=== PATIENT | male | born 1945 | race Caucasian/White ===

== ENCOUNTER 2022-02-15 17:36 | Emergency (ER) | payer MEDICARE, OTHER ==
[2022-02-15] MEDS ORDERED: Sodium Chloride 0.9% 1,000 ML IV SCH ×2 (18:15→19:30)
[2022-02-15 18:57] LABS: ESTIMATED GFR 79 mL/min (>60)
== END 2022-02-15 21:14 | disposition home or self-care (01) ==
LOC: JP.ED 17:36
DX: K62.5 Hemorrhage of anus and rectum (principal); E78.00 Pure hypercholesterolemia, unspecified; I10 Essential (primary) hypertension; Z95.5 Presence of coronary angioplasty implant and graft; Z79.82 Long term (current) use of aspirin; Z79.899 Other long term (current) drug therapy
CPT/HCPCS: 36415; 80053; 82272; 85025; 85610; 85730; 86850; 86900; 86901; 96360; 96361; 99284; J7030; 99281